=== PATIENT | female | born 1975 | race Caucasian/White ===

== ENCOUNTER → 2020-01-12 | Outpatient (CLI) | payer BC ==
--- NOTE | 2020-01-12 11:40 | KCIC ---
Examination: MRI of the right knee without contrast HISTORY: History of right knee pain medially, fall COMPARISON: None available Technique: Multiplanar, multisequence MR imaging of the right knee was performed without contrast FINDINGS: The anterior cruciate ligament, posterior cruciate ligament appear intact.There is blunting of the junction of the body and posterior horn of the medial meniscus likely tear. There is minimal extrusion of the medial meniscus medially. The lateral meniscus appears intact. The extensor mechanism is intact. Increased T2 signal identified in the proximal portion infrapatellar tendon and in the Hoffa's fat pad laterally.Small knee joint effusion. Mild increased T2 signal identified in the medial femoral condyle in the weightbearing portion likely trabecular edema. Deep fissuring of cartilage identified in the medial compartment. Mild fraying of cartilage identified in the lateral, patellofemoral compartments. IMPRESSION: 1. Blunting of the junction of the body and posterior horn the medial meniscus, probably a tear with minimal medial extrusion. 2. Mild trabecular edema medial femoral condyle with type II chondromalacia medial compartment. 3. Small knee joint effusion. 4.Increased T2 signal identified in the proximal portion infrapatellar tendon and in the Hoffa's fat pad laterally could be secondary to impingement. Electronically signed by: Fidel Mirza MD (01/12/2020 11:36 AM) [id number]
== END | disposition home or self-care (01) ==
LOC: KCIC MRI 09:54
PROVIDERS: ATTEND Physician Assistant Medical
DX: M25.461 Effusion, right knee (principal); M94.261 Chondromalacia, right knee
CPT/HCPCS: 73721